=== PATIENT | female | born 1950 | race Asian ===

== ENCOUNTER 2020-06-09 12:51 | Inpatient (IN) | payer MEDICAID ==
[~2020-06-09] VITALS: Ht 152.4 cm; Wt 47.2 kg
[2020-06-09 12:52] VITALS: Ht 152.4 cm; Wt 47.2 kg
[2020-06-09 14:57] LABS: PLATELET COUNT 346 x10^3mcL (130-400); RED CELL DISTRIBUTION WIDTH 23.1 % (11.5-14.5)
[2020-06-09 15:22] LABS: ALKALINE PHOSPHATASE 55 U/L (46-116); ALT/SGPT 184 U/L (14-59); AST/SGOT 463 U/L (15-37); BILIRUBIN TOTAL 0.8 mg/dL (0.20-1.00); CALCIUM 8.3 mg/dL (8.5-10.1); CARBON DIOXIDE 25.7 mmol/L (21-32); CHLORIDE SERUM 99 mmol/L (98-107); GLUCOSE SERUM 106 mg/dL (74-106); POTASSIUM SERUM 4.8 mmol/L (3.5-5.1); SODIUM SERUM 139 mmol/L (136-145); TOTAL PROTEIN, SERUM 6.5 g/dL (6.4-8.2)
[2020-06-09 15:28] LABS: ALBUMIN 2.5 g/dL (3.4-5.0)
[2020-06-09 15:29] LABS: LACTIC DEHYDROGENASE (LDH) 632 U/L (100-190)
[2020-06-09 15:30] LABS: CREATININE SERUM 5.5 mg/dL (0.6-1.0)
[2020-06-09] MEDS ORDERED: TOPROL XL50 MG PO (15:38)
[2020-06-09] MEDS ORDERED: DELTASONE20 MG PO (15:38)
[2020-06-09] MEDS ORDERED: IMURAN50 MG PO (15:38)
[2020-06-09] MEDS ORDERED: HYDRALAZINE HCL25 MG PO (15:39)
[2020-06-09] MEDS ORDERED: NOR10 PO (15:39)
[2020-06-09] MEDS ORDERED: OMEPRAZOLE PO (15:39)
[2020-06-09 16:21] LABS: MAGNESIUM 2.4 mg/dL (1.8-2.4); PHOSPHOROUS 6.4 mg/dL (2.5-4.9)
[2020-06-09 16:36] LABS: C REACTIVE PROTEIN 27.5 mg/dL (<=0.9)
[2020-06-09 17:50] LABS: BAND NEUTROPHIL 5 % (0-10); MONOCYTE 3 % (0-7); SEGMENTED NEUTROPHILS 90 % (37-75); rbc morphology (normal/abnorm) ABNORMAL (NORMAL)
[2020-06-09 17:52] LABS: PLATELET MORPHOLOGY PLATELETS NORMAL; ovalocyte/elliptocyte 2+; tear drop cell (dacryocyte) 1+
[2020-06-09 17:53] LABS: target cell (codocyte) 1+
[2020-06-09 18:05] VITALS: BP 107/74
[2020-06-09 18:16] LABS: microscopic required? YES; urine erythrocyte NEGATIVE (NEGATIVE)
[2020-06-09 18:49] LABS: AMPHETAMINE QUAL UR NONE DETECTED (See below)
[2020-06-09 21:45] VITALS: BP 110/61
[2020-06-10 06:10] VITALS: BP 103/48
[2020-06-10 07:59] LABS: CALCIUM 8.4 mg/dL (8.5-10.1); CARBON DIOXIDE 23.5 mmol/L (21-32); CHLORIDE SERUM 98 mmol/L (98-107); GLUCOSE SERUM 72 mg/dL (74-106); MAGNESIUM 2.5 mg/dL (1.8-2.4); POTASSIUM SERUM 4.6 mmol/L (3.5-5.1); SODIUM SERUM 138 mmol/L (136-145)
[2020-06-10 08:06] LABS: CREATININE SERUM 6.3 mg/dL (0.6-1.0)
[2020-06-10 08:26] LABS: BILIRUBIN DIRECT 0.37 mg/dL (0.0-0.2); BILIRUBIN TOTAL 0.85 mg/dL (0.20-1.00); TOTAL PROTEIN, SERUM 6.5 g/dL (6.4-8.2)
[2020-06-10 08:29] LABS: ALBUMIN 2.3 g/dL (3.4-5.0)
[2020-06-10 08:31] LABS: PLATELET COUNT 358 x10^3mcL (130-400)
[2020-06-10 08:36] VITALS: BP 105/57
[2020-06-10 08:44] LABS: RED CELL DISTRIBUTION WIDTH 23.4 % (11.5-14.5)
[2020-06-10 09:15] LABS: C REACTIVE PROTEIN 26.3 mg/dL (<=0.9)
[2020-06-10 11:33] VITALS: BP 100/49
[2020-06-10 16:38] VITALS: BP 99/55
[2020-06-10 18:24] LABS: BAND NEUTROPHIL 1 % (0-10); MONOCYTE 9 % (0-7); SEGMENTED NEUTROPHILS 78 % (37-75); rbc morphology (normal/abnorm) ABNORMAL (NORMAL)
[2020-06-10 21:42] VITALS: BP 146/117
[2020-06-11 05:55] VITALS: BP 107/61
[2020-06-11 10:25] VITALS: BP 110/50
[2020-06-11 12:32] VITALS: BP 91/46
[2020-06-11 15:16] LABS: PLATELET COUNT 418 x10^3mcL (130-400); RED CELL DISTRIBUTION WIDTH 24.3 % (11.5-14.5)
[2020-06-11 15:58] LABS: CALCIUM 8.4 mg/dL (8.5-10.1); CARBON DIOXIDE 25.8 mmol/L (21-32); CHLORIDE SERUM 97 mmol/L (98-107); CREATININE SERUM 3.9 mg/dL (0.6-1.0); GLUCOSE SERUM 195 mg/dL (74-106); MAGNESIUM 2.1 mg/dL (1.8-2.4); PHOSPHOROUS 6.3 mg/dL (2.5-4.9); POTASSIUM SERUM 4.4 mmol/L (3.5-5.1); SODIUM SERUM 136 mmol/L (136-145)
[2020-06-11 16:04] LABS: MONOCYTE 8 % (0-7); SEGMENTED NEUTROPHILS 81 % (37-75); rbc morphology (normal/abnorm) ABNORMAL (NORMAL)
[2020-06-11 16:19] LABS: C REACTIVE PROTEIN 17.2 mg/dL (<=0.9)
[2020-06-11 17:50] VITALS: BP 111/49
[2020-06-11 23:21] VITALS: BP 92/47
[2020-06-12 06:29] VITALS: BP 96/59
[2020-06-12 08:12] LABS: CALCIUM 8.9 mg/dL (8.5-10.1); CARBON DIOXIDE 27.7 mmol/L (21-32); CHLORIDE SERUM 96 mmol/L (98-107); GLUCOSE SERUM 139 mg/dL (74-106); HDL CHOLESTEROL 37 mg/dL (40-60); MAGNESIUM 2.4 mg/dL (1.8-2.4); PHOSPHOROUS 7.6 mg/dL (2.5-4.9); POTASSIUM SERUM 4.8 mmol/L (3.5-5.1); SODIUM SERUM 136 mmol/L (136-145); TRIGLYCERIDES 173 mg/dL (<150)
[2020-06-12 08:13] LABS: C REACTIVE PROTEIN 19.5 mg/dL (<=0.9); CHOLESTEROL 134 mg/dL (<200); CHOLESTEROL/HDL RATIO 3.6
[2020-06-12 09:13] VITALS: BP 104/51
[2020-06-12 12:40] VITALS: BP 103/44
[2020-06-12 13:23] LABS: PLATELET COUNT 394 x10^3mcL (179-408)
[2020-06-12 13:33] LABS: RED CELL DISTRIBUTION WIDTH 23.5 % (12.3-17.7)
[2020-06-12 14:58] LABS: BAND NEUTROPHIL 1 % (0-10); MONOCYTE 2 % (0-7); SEGMENTED NEUTROPHILS 93 % (37-75); rbc morphology (normal/abnorm) ABNORMAL (NORMAL)
[2020-06-12 17:56] VITALS: BP 99/48
[2020-06-12 21:31] VITALS: BP 113/62
[2020-06-13 06:46] VITALS: BP 103/58
[2020-06-13 06:52] LABS: PLATELET COUNT 363 x10^3mcL (130-400)
[2020-06-13 07:18] LABS: BASOPHIL % 0 % (0-2)
[2020-06-13 07:26] LABS: CARBON DIOXIDE 30.3 mmol/L (21-32); CHLORIDE SERUM 94 mmol/L (98-107); CREATININE SERUM 3.8 mg/dL (0.6-1.0); GLUCOSE SERUM 122 mg/dL (74-106); POTASSIUM SERUM 4.1 mmol/L (3.5-5.1); SODIUM SERUM 137 mmol/L (136-145)
[2020-06-13 09:10] VITALS: BP 110/60
[2020-06-13 12:12] VITALS: BP 121/61
[2020-06-13 13:16] LABS: rbc morphology (normal/abnorm) ABNORMAL (NORMAL)
[2020-06-13 13:17] LABS: ovalocyte/elliptocyte 1+; schistocyte (helmet cell) 1+; target cell (codocyte) 1+
[2020-06-13 16:38] VITALS: BP 112/59
[2020-06-13 22:08] VITALS: BP 129/79
[2020-06-14 06:21] VITALS: BP 120/67
[2020-06-14 08:31] LABS: BASOPHIL % 0.3 % (0.2-1.3); PLATELET COUNT 326 x10^3mcL (179-408)
[2020-06-14 08:37] VITALS: BP 115/62
[2020-06-14 08:37] LABS: RED CELL DISTRIBUTION WIDTH 22.5 % (12.3-17.7)
[2020-06-14 08:48] LABS: CALCIUM 9.2 mg/dL (8.5-10.1); CARBON DIOXIDE 27.7 mmol/L (21-32); CHLORIDE SERUM 94 mmol/L (98-107); GLUCOSE SERUM 105 mg/dL (74-106); POTASSIUM SERUM 4.6 mmol/L (3.5-5.1); SODIUM SERUM 135 mmol/L (136-145)
[2020-06-14 10:34] LABS: CREATININE SERUM 5.7 mg/dL (0.6-1.0)
[2020-06-14 12:43] VITALS: BP 97/57
[2020-06-14 15:08] LABS: rbc morphology (normal/abnorm) ABNORMAL (NORMAL)
[2020-06-14 17:30] VITALS: BP 114/69
[2020-06-14 20:13] LABS: IRON 70 ug/dL (50-170)
[2020-06-14 20:16] LABS: TOTAL IRON BINDING CAPACITY 128 ug/dL (250-450)
[2020-06-14 22:16] VITALS: BP 136/83
[2020-06-15 06:42] VITALS: BP 131/83
[2020-06-15 07:58] LABS: BASOPHIL % 0.2 % (0.2-1.3); PLATELET COUNT 324 x10^3mcL (179-408)
[2020-06-15 09:00] LABS: RED CELL DISTRIBUTION WIDTH 22.3 % (12.3-17.7)
[2020-06-15 09:06] LABS: C REACTIVE PROTEIN 4.3 mg/dL (<=0.9); CARBON DIOXIDE 29.1 mmol/L (21-32); CHLORIDE SERUM 97 mmol/L (98-107); GLUCOSE SERUM 142 mg/dL (74-106); MAGNESIUM 2.3 mg/dL (1.8-2.4); POTASSIUM SERUM 3.9 mmol/L (3.5-5.1); SODIUM SERUM 139 mmol/L (136-145)
[2020-06-15 09:09] VITALS: BP 124/72
[2020-06-15 10:04] LABS: CREATININE SERUM 4.5 mg/dL (0.6-1.0)
[2020-06-15 12:37] VITALS: BP 122/75
[2020-06-15 15:58] LABS: rbc morphology (normal/abnorm) NORMAL (NORMAL)
[2020-06-15 17:12] VITALS: BP 111/70
[2020-06-15 21:49] VITALS: BP 116/75
[2020-06-16 06:17] VITALS: BP 119/74
[2020-06-16 07:54] LABS: PLATELET COUNT 275 x10^3mcL (179-408)
[2020-06-16 09:05] VITALS: BP 107/67
[2020-06-16 09:26] LABS: RED CELL DISTRIBUTION WIDTH 22.3 % (12.3-17.7)
[2020-06-16 13:38] LABS: ATYPICAL LYMPH 1 %; BAND NEUTROPHIL 1 % (0-10); BASOPHIL 1 % (0-2); MONOCYTE 2 % (0-7)
[2020-06-16 13:40] LABS: SEGMENTED NEUTROPHILS 83 % (37-75); rbc morphology (normal/abnorm) ABNORMAL (NORMAL)
[2020-06-16 13:41] LABS: PLATELET MORPHOLOGY PLATELETS NORMAL; ovalocyte/elliptocyte 2+; schistocyte (helmet cell) 1+; tear drop cell (dacryocyte) 1+
[2020-06-16 16:32] LABS: CALCIUM 9.6 mg/dL (8.5-10.1); CARBON DIOXIDE 25.3 mmol/L (21-32); CHLORIDE SERUM 97 mmol/L (98-107); GLUCOSE SERUM 95 mg/dL (74-106); POTASSIUM SERUM 4.5 mmol/L (3.5-5.1); SODIUM SERUM 137 mmol/L (136-145)
[2020-06-16 16:40] LABS: CREATININE SERUM 6.2 mg/dL (0.6-1.0)
[2020-06-16 23:46] VITALS: BP 139/83
[2020-06-17 05:59] VITALS: BP 128/67
[2020-06-17 08:23] LABS: BASOPHIL % 0.4 % (0.2-1.3); PLATELET COUNT 272 x10^3mcL (179-408)
[2020-06-17 08:57] VITALS: BP 117/70
[2020-06-17 09:05] LABS: ALKALINE PHOSPHATASE 55 U/L (46-116); ALT/SGPT 39 U/L (14-59); AST/SGOT 18 U/L (15-37); BILIRUBIN DIRECT 0.17 mg/dL (0.0-0.2); BILIRUBIN TOTAL 1.5 mg/dL (0.20-1.00); CALCIUM 10.3 mg/dL (8.5-10.1); CARBON DIOXIDE 26.2 mmol/L (21-32); CHLORIDE SERUM 96 mmol/L (98-107); GLUCOSE SERUM 102 mg/dL (74-106); POTASSIUM SERUM 4.7 mmol/L (3.5-5.1); SODIUM SERUM 135 mmol/L (136-145)
[2020-06-17 09:37] LABS: ALBUMIN 2.4 g/dL (3.4-5.0); TOTAL PROTEIN, SERUM 5.6 g/dL (6.4-8.2)
[2020-06-17 09:38] LABS: CREATININE SERUM 7.5 mg/dL (0.6-1.0)
[2020-06-17 09:40] LABS: RED CELL DISTRIBUTION WIDTH 22.1 % (12.3-17.7)
[2020-06-17 12:06] VITALS: BP 114/67
[2020-06-17 14:53] LABS: rbc morphology (normal/abnorm) NORMAL (NORMAL)
[2020-06-17 16:43] VITALS: BP 124/77
[2020-06-17 21:20] VITALS: BP 104/61
[2020-06-18 05:45] VITALS: BP 154/77
[2020-06-18 07:53] LABS: BASOPHIL % 0.3 % (0.2-1.3); PLATELET COUNT 216 x10^3mcL (179-408)
[2020-06-18 08:29] LABS: MAGNESIUM 2.2 mg/dL (1.8-2.4)
[2020-06-18 08:32] LABS: RED CELL DISTRIBUTION WIDTH 21.6 % (12.3-17.7)
[2020-06-18 08:57] LABS: rbc morphology (normal/abnorm) NORMAL (NORMAL)
[2020-06-18 09:14] VITALS: BP 114/76
[2020-06-18 09:16] LABS: CALCIUM 9.1 mg/dL (8.5-10.1); CARBON DIOXIDE 30.4 mmol/L (21-32); CHLORIDE SERUM 98 mmol/L (98-107); GLUCOSE SERUM 90 mg/dL (74-106); POTASSIUM SERUM 4.4 mmol/L (3.5-5.1); SODIUM SERUM 138 mmol/L (136-145)
[2020-06-18 09:21] LABS: CREATININE SERUM 4.4 mg/dL (0.6-1.0)
[2020-06-18 14:00] VITALS: BP 116/70
[2020-06-18 18:30] VITALS: BP 124/66
[2020-06-18 22:08] VITALS: BP 115/70
[2020-06-19 05:30] VITALS: BP 134/69
[2020-06-19 07:30] LABS: BASOPHIL % 0.4 % (0.2-1.3); PLATELET COUNT 228 x10^3mcL (179-408)
[2020-06-19 07:59] LABS: CALCIUM 8.9 mg/dL (8.5-10.1); CARBON DIOXIDE 29.7 mmol/L (21-32); CHLORIDE SERUM 99 mmol/L (98-107); GLUCOSE SERUM 91 mg/dL (74-106); POTASSIUM SERUM 4.9 mmol/L (3.5-5.1); SODIUM SERUM 136 mmol/L (136-145)
[2020-06-19 08:16] LABS: RED CELL DISTRIBUTION WIDTH 21.7 % (12.3-17.7)
[2020-06-19 08:20] VITALS: BP 138/78
[2020-06-19 11:38] LABS: rbc morphology (normal/abnorm) NORMAL (NORMAL)
[2020-06-19 12:40] VITALS: BP 112/71
[2020-06-19 15:00] VITALS: BP 131/78
[2020-06-19 21:06] VITALS: BP 102/61
[2020-06-20 06:14] VITALS: BP 113/70
[2020-06-20 08:05] LABS: BASOPHIL % 0.6 % (0.2-1.3); PLATELET COUNT 208 x10^3mcL (179-408)
[2020-06-20 08:21] LABS: CALCIUM 7.9 mg/dL (8.5-10.1); CARBON DIOXIDE 28.8 mmol/L (21-32); CHLORIDE SERUM 101 mmol/L (98-107); GLUCOSE SERUM 102 mg/dL (74-106); POTASSIUM SERUM 3.9 mmol/L (3.5-5.1); SODIUM SERUM 141 mmol/L (136-145)
[2020-06-20 08:28] LABS: CREATININE SERUM 4.2 mg/dL (0.6-1.0)
[2020-06-20 08:31] LABS: RED CELL DISTRIBUTION WIDTH 22.1 % (12.3-17.7)
[2020-06-20 08:32] LABS: rbc morphology (normal/abnorm) ABNORMAL (NORMAL)
[2020-06-20 09:05] VITALS: BP 118/68
[2020-06-20 09:09] LABS: PHOSPHOROUS 3.3 mg/dL (2.5-4.9)
[2020-06-20] MEDS ORDERED: MEDROL DOSEPAK4 MG PO (11:27)
[2020-06-20] MEDS ORDERED: ELIQUIS2.5 MG PO (11:27)
[2020-06-20 11:29] VITALS: BP 122/61
[2020-06-20 11:53] VITALS: BP 114/69
== END 2020-06-20 17:30 | disposition home or self-care (01) | DRG 720 ==
LOC: ED 12:51 → EDBEDREQ 15:01 → DU 15:01
PROVIDERS: Family Medicine; Internal Medicine Hematology & Oncology; Student in an Organized Health Care Education/Training Program; ADMIT Internal Medicine; ATTEND Internal Medicine
PROC: 5A09557 Assistance with Respiratory Ventilation, Greater than 96 Consecutive Hours, Continuous Positive Airway Pressure (ICD-10-PCS; 2020-06-09)
PROC: 02H633Z Insertion of Infusion Device into Right Atrium, Percutaneous Approach (ICD-10-PCS; 2020-06-09)
PROC: 5A1D70Z Performance of Urinary Filtration, Intermittent, Less than 6 Hours Per Day (ICD-10-PCS; 2020-06-10)
PROC: 5A1D70Z Performance of Urinary Filtration, Intermittent, Less than 6 Hours Per Day (ICD-10-PCS; 2020-06-17)
PROC: XW13325 Transfusion of Convalescent Plasma (Nonautologous) into Peripheral Vein, Percutaneous Approach, New Technology Group 5 (ICD-10-PCS; principal; 2020-06-18)
DX: A41.89 Other specified sepsis (principal); U07.1 COVID-19; I21.A1 Myocardial infarction type 2; G70.00 Myasthenia gravis without (acute) exacerbation; N18.6 End stage renal disease; J12.89 Other viral pneumonia; I12.0 Hypertensive chronic kidney disease with stage 5 chronic kidney disease or end stage renal disease; J96.01 Acute respiratory failure with hypoxia; M81.0 Age-related osteoporosis without current pathological fracture; E44.1 Mild protein-calorie malnutrition; D63.1 Anemia in chronic kidney disease; E83.39 Other disorders of phosphorus metabolism; Z68.24 Body mass index [BMI] 24.0-24.9, adult; G93.40 Encephalopathy, unspecified
CPT/HCPCS: 36600; 83880; 85378; 86580; 97110-GP; 97116-GP; 97530-GP; G0378; J0692; J0885-EC; J1100; J1644; J2543; J2997; J3370; J3535; J7030; J7050; J7500; P9047; U0003